=== PATIENT | male | born 1955 | race Caucasian/White ===

== ENCOUNTER → 2019-05-22 08:57 | Day surgery (SDC) | payer BC ==
--- NOTE | 2019-05-18 18:00 | HP ---
CC: Dr. Gokul Del Rio; Dr. Azael Galicia * ADMITTING HISTORY AND PHYSICAL: DATE OF ADMISSION: 05/22/19 ADMITTING DIAGNOSES: 1. Calculus, right proximal ureter. 2. Right hydronephrosis. PLANNED PROCEDURE: Right stent insertion and shockwave lithotripsy of calculus right ureter. SURGEON: Dr. Galicia. HISTORY OF PRESENT ILLNESS: Aries Otero is a 63-year-old gentleman, who has had intermittent right flank pain for the last 3 months. He recently started having gross hematuria and on evaluation was noted to have an approximately 8 to 9 mm calculus in the right proximal ureter just below the ureteropelvic junction causing right hydronephrosis. In addition, he has a nonobstructing left renal calculus that will probably require treatment at a later stage. PAST MEDICAL HISTORY: Significant for: 1. Peripheral neuropathy. 2. History of renal calculi. 3. Chronic tinnitus in the right ear. 4. Hypertension. 5. High triglycerides. PAST SURGICAL HISTORY: Significant for shockwave lithotripsy of left renal calculi in 2003 and right wrist fusion and appendectomy. MEDICATIONS ON ADMISSION: 1. Amlodipine/benazepril 10/20 one tablet daily. 2. Cymbalta 60 mg daily. 3. Fenofibrate 160 mg daily. 4. Pravastatin 40 mg daily. 5. Lyrica 150 mg daily. ALLERGIES AND INTOLERANCES: WELLBUTRIN and PROZAC. FAMILY HISTORY: Negative for stones. SOCIAL HISTORY: Smoking history: He is a nonsmoker. PHYSICAL EXAMINATION GENERAL: He appears to be a healthy middle-aged gentleman, who is alert and oriented. VITAL SIGNS: Blood pressure is 118/78, pulse 81 per minute and regular, temperature 98.8, oxygen saturation 97% on room air. LUNGS: Clear bilaterally. CARDIOVASCULAR: Regular rate and rhythm. S1, S2. ABDOMEN: Soft with mild right flank tenderness. IMPRESSION AND PLAN: A 63-year-old gentleman with an obstructing calculus just below the right ureteropelvic junction. Plan is right stent insertion and shockwave lithotripsy of right ureteral calculus. [id number] #: [id number] MTDD
[~2019-05-22 08:57] MED LIST: Acetaminophen TAB* 325 MG PO PRN; Buffered Lidocaine 1% SYRIN* 1 ML/SYRINGE INTRADERM ONE; Dexamethasone IV* 4 MG/ML 1 ML (4 MG) IV SLOW PU ONE; Dexamethasone IV* 4 MG/ML 1 ML (4 MG) ONE; EPHEDrine (Pressors)* 50 MG/ML VIAL ONE; Famotidine IV* 10 MG/ML 2 ML (20 mg) IV ONE; Furosemide IV* 10 MG/ML 2 ML VIAL (20 MG) ONE; HYDROcodone/ACETAMIN 5-325 MG* 1 TAB PO PRN; HYDROmorphone INJ1* 1 MG/ML SYRINGE IV PRN; Iohexol 180 (CONTRAST) 10 ML SDV IV ONE; Lactated Ringers 1000 ML Bag* 1,000 ML IV SCH; Lidocaine 2% PF * 5 ML VIAL ONE; Midazolam* 1 MG/ML 2 ML VIAL (2 MG) ONE; Naloxone* 0.4 MG/ML 1 ML VIAL IV PRN; Ondansetron INJ* 2 MG/ML VIAL ONE; Phenylephrine 40 MCG/ML SYRINGE ONE; Propofol* 10 MG/ML 20 ML BTL ONE; Scopolamine 1.5 mg* PATCH TRANSDERM ONE; Sevoflurane* BOTTLE ONE; cefTRIAXone(*) 2 GM ADDV.VIAL IVPB ONE; fentaNYL* 50 MCG/ML 2 ML VIAL (100 MCG VIAL) ONE
[2019-05-22] MEDS: Buffered Lidocaine 1% SYRIN* 1 ML/SYRINGE INTRADERM ONE ×2 (10:14→10:38)
[2019-05-22 15:40] VITALS: BP 119/65
--- NOTE | 2019-05-22 20:14 | OP ---
DATE OF OPERATION: 05/22/19 - SDS DATE OF : 57 SURGEON: Azael Galicia MD ANESTHESIOLOGIST: Dr. Alvarado. ANESTHESIA: General. PRE-OP DIAGNOSES: 1. Calculus, right proximal ureter. 2. Right hydronephrosis. POST-OP DIAGNOSES: 1. Calculus, right proximal ureter. 2. Right hydronephrosis. OPERATIVE PROCEDURE: 1. Shockwave lithotripsy of calculus, right ureter. 2. Right retrograde and right stent insertion. INDICATIONS: Aries Otero is a 63-year-old gentleman who has had persistent right flank pain secondary to a 9-mm calculus in the right proximal ureter. COMPLICATIONS: None. STENT USED: A 6-Icelandic stent, right ureter. OPERATIVE FINDINGS: Approximately 9-mm calculus, right proximal ureter with right hydronephrosis (bifid right collecting system). POSTOPERATIVE CONDITION: Stable. DESCRIPTION OF PROCEDURE: After induction of general anesthesia, the patient was placed on the lithotripsy table in supine position. The calculus which was just below the right ureteropelvic junction was localized using fluoroscopy. Shockwave lithotripsy was commenced at a rate of 60 shocks per minute and intermittent fluoroscopy revealed adequate localization and fragmentation. Next, the patient was placed in dorsal lithotomy position and cystoscopy was performed. The urethra appeared normal. The prostate was mildly enlarged. The bladder was examined and appeared normal. A guidewire was introduced into the right ureter. Retrograde pyelogram revealed a bifid collecting system with fullness of the collecting system and a 6-Icelandic stent was introduced and positioned under fluoroscopy with good proximal and distal positioning obtained. The patient tolerated the procedure satisfactorily and was transferred back to the recovery area in stable condition. [id number] #: [id number] [facility]
== END | disposition home or self-care (01) ==
LOC: OR 08:57
PROVIDERS: ATTEND Urology
DX: N13.2 Hydronephrosis with renal and ureteral calculous obstruction (principal); I10 Essential (primary) hypertension; G62.9 Polyneuropathy, unspecified; Z87.442 Personal history of urinary calculi; Z85.828 Personal history of other malignant neoplasm of skin; M19.90 Unspecified osteoarthritis, unspecified site
CPT/HCPCS: 74018; C1876; J0696; J1100; J1940; J2250; J2405; J2704; J3010

== ENCOUNTER 2019-12-13 21:43 | Observation (INO) ==
[2019-12-13] MEDS ORDERED: NS 0.9% 1000 ml BAG 1,000 ML IV ONE (22:49)
[2019-12-13] MEDS ORDERED: Morphine 4 MG/ML VIAL (1 ml) IV ONE (22:58)
[2019-12-13] MEDS ORDERED: Ondansetron 4 mg VIAL 2 MG/ML 2 ml VIAL IV ONE (22:58)
[2019-12-13 23:16] LABS: ABS Basophils 0.1 10^3/ul (0-0.2); ABS Lymphocytes 0.5 10^3/ul (1.0-4.8); ABS Monocytes 0.8 10^3/ul (0-0.8); Hematocrit 38 % (42-52); Hemoglobin 12.9 g/dL (14.0-18.0); Lymphocyte % 3.1 %; Mean Corpuscular HGB Conc 34 g/dL (31-36); Mean Corpuscular Hemoglobin 31 pg (27-31); Mean Corpuscular Volume 91 fL (80-94); Platelet Count 253 10^3/uL (150-450); Red Blood Count 4.14 10^6 /uL (4.18-5.48); Red Cell Distribution Width 13 % (10-15)
[2019-12-13 23:35] LABS: Albumin 4.3 g/dL (3.2-5.2); Albumin/Globulin Ratio 1.6 (1-3); BUN/Creatinine Ratio 12.7 (8-20); C Reactive Protein 1.8 mg/L (<8.01); Calcium 9.3 mg/dL (8.6-10.3); EGFR African American 61.1 (>60); EGFR Non-African American 50.5 (>60); Globulin 2.7 g/dL (2-4); Potassium 4.2 mmol/L (3.5-5.0); Total Bilirubin 0.4 mg/dL (0.2-1.0)
[2019-12-13] MEDS ORDERED: Iodixanol (CONTRAST) 320 MG/ML 100 ML SDV IV ONE ×2 (23:44→23:53)
[2019-12-14] MEDS ORDERED: HYDROmorphone 0.5 MG/0.5 ML SYRINGE IV ONE (00:35)
[2019-12-14 00:39] LABS: Activated Partial Thrombo Time 29.1 seconds (26.0-38.0); INR 1.14 (0.82-1.09)
[2019-12-14 00:40] LABS: Urine Appearance Cloudy; Urine Bilirubin Negative (Negative); Urine Blood 3+ (Negative); Urine Color Yellow; Urine Glucose 1+(50 mg/dL) (Negative); Urine Ketones Negative (Negative); Urine Nitrite Negative (Negative); Urine Protein Negative (Negative); Urine Specific Gravity 1.018 (1.010-1.030); Urine Urobilinogen Negative (Negative)
[2019-12-14 01:03] LABS: Urine Bacteria Absent (Absent); Urine Red Blood Cell 3+(>10/hpf) (Absent); Urine White Blood Cell Trace(0-5/hpf) (Absent)
[2019-12-14] MEDS ORDERED: Morphine 2 MG/ML SYRINGE IV PRN (01:04)
[2019-12-14] MEDS ORDERED: Ondansetron 4 mg VIAL 2 MG/ML 2 ml VIAL IV PRN (01:04)
[2019-12-14] MEDS ORDERED: Senna TAB 8.6 mg TAB PO PRN (01:43)
[2019-12-14 02:07] LABS: Urine Creatinine Concentration 118.2 mg/dL
[2019-12-14] MEDS: NS 0.9% 1000 ml BAG 1,000 ML IV SCH ×4 (02:55→20:22)
[2019-12-14 05:02] LABS: ABS Lymphocytes 0.9 10^3/ul (1.0-4.8); ABS Monocytes 1.3 10^3/ul (0-0.8); Eosinophil % 0.1 %; Hematocrit 36 % (42-52); Hemoglobin 12.2 g/dL (14.0-18.0); Lymphocyte % 5.7 %; Mean Corpuscular HGB Conc 34 g/dL (31-36); Mean Corpuscular Hemoglobin 31 pg (27-31); Mean Corpuscular Volume 92 fL (80-94); Mean Platelet Volume 8.9 fL (7.4-10.4); Platelet Count 225 10^3/uL (150-450); Red Blood Count 3.89 10^6 /uL (4.18-5.48); Red Cell Distribution Width 13 % (10-15); White Blood Count 15.6 10^3/uL (3.5-10.8)
[2019-12-14 05:07] LABS: INR 1.14 (0.82-1.09)
[2019-12-14 05:18] LABS: BUN/Creatinine Ratio 11.9 (8-20); Calcium 8.9 mg/dL (8.6-10.3); EGFR African American 65.4 (>60)
[2019-12-14] MEDS: Pregabalin 25 mg CAP (*) PO SCH ×2 (10:19→20:49)
[2019-12-14] MEDS: DULoxetine DR 60 mg CAP PO SCH ×2 (10:19→20:48)
[2019-12-14] MEDS: HYDROmorphone 0.5 MG/0.5 ML SYRINGE IV SLOW PU PRN ×4 (10:19→23:44)
[2019-12-14] MEDS: CMCS:Pravastatin 20 mg TAB (NF) PO SCH (20:48)
[2019-12-14] MEDS ORDERED: Piperacillin/Tazobac ADVAN(*) 3.375 GM in NS 0.9% 100 ml BAG 100 ML IVPB ONE (21:44)
[2019-12-14] MEDS ORDERED: cefTRIAXone(*) 2 GM ADDV.VIAL 2 GM in NS 0.9% 100 ml BAG 100 ML IV ONE (21:52)
[2019-12-14] MEDS ORDERED: GENTAMICIN ADULT IVPB SCH (22:00)
[2019-12-14] MEDS ORDERED: NS 0.9% IVPB SCH (22:00)
[2019-12-14] MEDS ORDERED: Lactated Ringers 1000 ml BAG 1,000 ML IV SCH (22:00)
[2019-12-14] MEDS ORDERED: Zosyn per Pharmacy NOTE FOLLOW UP SCH (22:00)
[2019-12-14] MEDS ORDERED: GENTAMICIN ADULT IVPB ONE (22:15)
[2019-12-14] MEDS ORDERED: NS 0.9% IVPB ONE (22:15)
[2019-12-14 22:31] LABS: ABS Eosinophils 0.1 10^3/ul (0-0.6); ABS Lymphocytes 1.1 10^3/ul (1.0-4.8); ABS Monocytes 1.1 10^3/ul (0-0.8); Eosinophil % 0.8 %; Hematocrit 33 % (42-52); Hemoglobin 11.6 g/dL (14.0-18.0); Lymphocyte % 9.1 %; Mean Corpuscular HGB Conc 35 g/dL (31-36); Mean Corpuscular Hemoglobin 32 pg (27-31); Mean Corpuscular Volume 92 fL (80-94); Mean Platelet Volume 9.2 fL (7.4-10.4); Platelet Count 198 10^3/uL (150-450); Red Blood Count 3.64 10^6 /uL (4.18-5.48); Red Cell Distribution Width 13 % (10-15)
[2019-12-14 22:53] LABS: BUN/Creatinine Ratio 9.5 (8-20); Calcium 8.6 mg/dL (8.6-10.3); EGFR Non-African American 41.3 (>60); Potassium 3.8 mmol/L (3.5-5.0)
[2019-12-15] MEDS: NS 0.9% 1000 ml BAG 1,000 ML IV SCH (02:19)
[2019-12-15 05:17] LABS: Hematocrit 32 % (42-52); Hemoglobin 10.9 g/dL (14.0-18.0); Mean Corpuscular HGB Conc 35 g/dL (31-36); Mean Corpuscular Hemoglobin 32 pg (27-31); Mean Corpuscular Volume 92 fL (80-94); Mean Platelet Volume 9.2 fL (7.4-10.4); Platelet Count 162 10^3/uL (150-450); Red Blood Count 3.43 10^6 /uL (4.18-5.48); Red Cell Distribution Width 13 % (10-15); White Blood Count 12.1 10^3/uL (3.5-10.8)
[2019-12-15 05:40] LABS: BUN/Creatinine Ratio 8.9 (8-20); Calcium 8.4 mg/dL (8.6-10.3); EGFR Non-African American 41.3 (>60); Potassium 3.8 mmol/L (3.5-5.0)
[2019-12-15] MEDS ORDERED: Lactated Ringers 1000 ml BAG 1,000 ML IV SCH (06:00)
[2019-12-15] MEDS ORDERED: diPHENhydraMINE IV 50 MG/ML 1 ml VIAL (BENADRYL) IV PRN (08:10)
[2019-12-15] MEDS ORDERED: HYDROmorphone 1 MG/1 ML SYRINGE IV PRN (08:10)
[2019-12-15] MEDS ORDERED: Prochlorperazine 5 mg/ml 2 ml VIAL (10 mg) IV PRN (08:10)
[2019-12-15] MEDS ORDERED: Naloxone 0.4 mg VIAL 0.4 mg/ml 1 ml VIAL IV PRN (08:10)
[2019-12-15] MEDS ORDERED: Propofol 10 MG/ML 20 ML BTL ONE (08:29)
[2019-12-15] MEDS ORDERED: fentaNYL 100 mcg/2 ml 50 MCG/ML VIAL ONE (08:29)
[2019-12-15] MEDS ORDERED: Midazolam 2 mg/2 ml VIAL 1 mg/ml 2 ml VIAL (2 mg) ONE (08:29)
[2019-12-15] MEDS: HYDROmorphone 0.5 MG/0.5 ML SYRINGE IV SLOW PU PRN ×2 (08:32→22:05)
[2019-12-15] MEDS ORDERED: fentaNYL 250 mcg/5 ml 50 MCG/ML 5 ml VIAL (250 MCG) ONE (09:25)
[2019-12-15] MEDS ORDERED: Succinylcholine 200 mg VIAL 20 mg/ml 10 ml VIAL (200 mg) ONE (09:25)
[2019-12-15] MEDS ORDERED: EPHEDrine (Pressors) 50 MG/ML VIAL ONE (09:41)
[2019-12-15] MEDS ORDERED: Dexamethasone IV 4 MG/ML VIAL 1 ml VIAL ONE ×2 (10:06→10:40)
[2019-12-15] MEDS ORDERED: Ondansetron 4 mg VIAL 2 MG/ML 2 ml VIAL ONE ×2 (10:06→10:40)
[2019-12-15] MEDS: Pregabalin 25 mg CAP (*) PO SCH ×2 (10:09→22:03)
[2019-12-15] MEDS: DULoxetine DR 60 mg CAP PO SCH ×2 (10:09→22:03)
[2019-12-15] MEDS ORDERED: Iohexol 180 (CONTRAST) 10 ML SDV IV ONE (11:07)
[2019-12-15] MEDS: Lidocaine 2% JELLY 6 ML TOPICAL SCH ×2 (14:51→22:05)
[2019-12-15] MEDS ORDERED: cefTRIAXone 1 gm/50 mL NS BAG 1 GM/50 ML BAG IVPB SCH (22:00)
[2019-12-15] MEDS: CMCS:Pravastatin 20 mg TAB (NF) PO SCH (22:06)
[2019-12-16 09:24] LABS: ABS Lymphocytes 0.9 10^3/ul (1.0-4.8); ABS Monocytes 0.8 10^3/ul (0-0.8); Eosinophil % 0.4 %; Hematocrit 31 % (42-52); Hemoglobin 11.1 g/dL (14.0-18.0); Lymphocyte % 8.4 %; Mean Corpuscular HGB Conc 35 g/dL (31-36); Mean Corpuscular Hemoglobin 32 pg (27-31); Mean Corpuscular Volume 91 fL (80-94); Mean Platelet Volume 8.7 fL (7.4-10.4); Platelet Count 176 10^3/uL (150-450); Red Blood Count 3.47 10^6 /uL (4.18-5.48); Red Cell Distribution Width 13 % (10-15)
[2019-12-16] MEDS: DULoxetine DR 60 mg CAP PO SCH (09:24)
[2019-12-16] MEDS: Pregabalin 25 mg CAP (*) PO SCH (09:25)
[2019-12-16] MEDS: Lidocaine 2% JELLY 6 ML TOPICAL SCH ×2 (09:28→12:01)
[2019-12-16 09:38] LABS: BUN/Creatinine Ratio 9.8 (8-20); Calcium 9.2 mg/dL (8.6-10.3); EGFR African American 52.1 (>60); EGFR Non-African American 43.1 (>60); Potassium 3.9 mmol/L (3.5-5.0)
[2019-12-16] MEDS ORDERED: Magnesium Hydroxide LIQ 30 ML UDC PO PRN (10:29)
[2019-12-16] MEDS ORDERED: Polyethylene Glycol 3350 17 GM PACKET PO ONE (10:29)
[2019-12-16 12:12] VITALS: BP 155/82
== END 2019-12-16 16:20 | disposition home or self-care (01) ==
LOC: SSU 21:43 → ED 21:43 → SSU 12-14 02:55
PROVIDERS: ADMIT Pediatrics; ATTEND Hospitalist